=== PATIENT | female | born 1955 | race Caucasian/White ===

== ENCOUNTER 2018-08-06 17:24 | Emergency (ER) | payer OTHER ==
--- NOTE | 2018-08-06 17:39 | PDOC ---
Rapid Medical Evaluation Chief Complaint: Chest Pain Time Seen by Provider: 08/06/18 17:38 Medical Evaluation: 08/06/18 17:38 I have performed a brief in person evaluation of this patient. The patient's CC: CP HPI: Pt is a 62 YO female with CP x 1 day. No CV hx. PE: Skin: Clear Heart: RRR Lungs: Clear MS. moves all extremities without difficulty. Psch: appropriate affect CV protocol initiated. The patient will proceed to main ED for further evaluation. Discharge Disposition - Diagnosis Chest pain Qualifiers: Chest pain type: unspecified Qualified Code(s): R07.9 - Chest pain, unspecified - Referrals - Patient Instructions - Post Discharge Activity
[2018-08-06 17:41] VITALS: BP 157/87; PULSE 77; TEMP 98; BMI 32.4
--- NOTE | 2018-08-06 18:47 | PDOC ---
History of Present Illness - General Chief Complaint: Chest Pain Stated Complaint: CHEST PAIN Time Seen by Provider: 08/06/18 17:38 - History of Present Illness Initial Comments: The patient is a 62F w/ no reported PMH who presents for evaluation of 2d of intermittent substernal chest pain described as chest pressure that is b/l, worse in the morning, associated with residual chest wall soreness, and she is unsure if it is exacerbated/alleviated by anything that she can identify. She states she awoke yesterday morning suddenly bc of a mid-chest 'thump' that she felt. It subsequently resolved on her own, but for the remainder of the day she was experiencing chest wall soreness that is worse with movement and palpation. She reports feeling a similar sensation this morning which has since resolved, but also continues to feel the soreness. She has never had anything like this happen before. Of note, patient recently began taking care of her sibling who is s/p femur fx. Bc of this she has been sleeping less, doing more around the house, and reportedly taking less care of her self in general. Denies fevers/chills, REDD[place], vision changes, abdominal pain, N/V/C/D, or changes in sensation. Pt w/o PCP at this time 08/06/18 18:48 Past History - Past Medical History Allergies/Adverse Reactions: Allergies Allergy/AdvReac Type Severity Reaction Status Date / Time ascorbic acid Allergy Verified 08/06/18 19:12 cefazolin [From Ancef] Allergy Verified 08/06/18 19:11 shellfish derived Allergy Verified 08/06/18 19:11 [place] And Derivatives AdvReac Verified 08/06/18 19:12 Home Medications: Ambulatory Orders NK [No Known Home Medication] 08/06/18 COPD: No Diabetes: Yes (PRE - DIABETES) - Immunization History Immunization Up to Date: Yes - Suicide/Smoking/Psychosocial Hx Smoking History: Never smoked Hx Alcohol Use: No Drug/Substance Use Hx: No Review of Systems - Review of Systems Able to Perform ROS?: Yes Comments:: GENERAL/CONSTITUTIONAL: No fever or chills. No weakness HEAD, EYES, EARS, NOSE AND THROAT: No change in vision. No ear pain or discharge. No sore throat CARDIOVASCULAR: per HPI RESPIRATORY: Denies cough, hemoptysis GASTROINTESTINAL: No nausea, vomiting, diarrhea or constipation GENITOURINARY: No dysuria, frequency, or change in urination MUSCULOSKELETAL: +BLE chronic mild swelling w/o recent change SKIN: No rash NEUROLOGIC: No headache, vertigo, loss of consciousness, or change in strength/ sensation ENDOCRINE: No increased thirst. No abnormal weight change HEMATOLOGIC/LYMPHATIC: No anemia, easy bleeding, or history of blood clots ALLERGIC/IMMUNOLOGIC: No hives or skin allergy 08/06/18 18:41 Is the patient limited Lithuanian proficient: No *Physical Exam - Vital Signs Last Vital Signs Temp Pulse Resp BP Pulse Ox 98.0 F 77 17 157/87 99 08/06/18 17:38 08/06/18 17:38 08/06/18 17:38 08/06/18 17:38 08/06/18 17:38 - Physical Exam Comments: GENERAL: Awake, alert, and fully oriented, in no acute distress HEAD: No signs of trauma, normocephalic, atraumatic EYES: PERRLA, EOMI, sclera anicteric, conjunctiva clear ENT: Hearing grossly normal, nares patent, oropharynx clear without exudates.Moist mucosa LUNGS: No distress, speaks full sentences, clear to auscultation bilaterally HEART: Regular rate and rhythm, normal S1 and S2, no murmurs appreciated, peripheral pulses normal and equal bilaterally ABDOMEN: Soft, nontender, normoactive bowel sounds. No guarding, no rebound EXTREMITIES : Normal inspection, Normal range of motion, no edema. No clubbing or cyanosis NEUROLOGICAL: Cranial nerves II through XII grossly intact. Normal speech, no focal sensorimotor deficits SKIN: Warm, Dry, normal turgor, no rashes or lesions noted 08/06/18 18:41 Moderate Sedation - Procedure Monitoring Vital Signs: Procedure Monitoring Vital Signs Temperature 98.0 F 08/06/18 17:38 Pulse Rate 77 08/06/18 17:38 Respiratory Rate 17 08/06/18 17:38 Blood Pressure 157/87 08/06/18 17:38 O2 Sat by Pulse Oximetry (%) 99 08/06/18 17:38 ED Treatment Course - LABORATORY CBC & Chemistry Diagram: 08/06/18 18:50 08/06/18 18:50 Medical Decision Making - Medical Decision Making The pt is a 62F w/ no reported PMH who presents for evaluation for 2d of intermittent, non-exertional, substernal chest pain. Ddx: r/o ACS, r/o PNA, not likely GERD, r/o anemia ED Course CMP, CBC, cardiac profile, Cardiac profile ECG 08/06/18 18:50 No leukocytosis No anemia CXR dictation from Urgent Care w/o PNA ECG w/ sinus rhythm, mild RAD 08/06/18 19:22 Trop I neg x2 Plan for D/C w/ PCP and Cardiology f/u Discharge instructions and return precautions given Patient in agreement and verbalized understanding Dispo: home 08/06/18 23:02 *DC/Admit/Observation/Transfer Diagnosis at time of Disposition: Chest pain Qualifiers: Chest pain type: unspecified Qualified Code(s): R07.9 - Chest pain, unspecified - Discharge Dispostion Disposition: HOME Condition at time of disposition: Stable Decision to Admit order: No - Referrals Referrals: Edna Mora [Primary Care Provider] - Joey Garrido MD [Staff Physician] - - Patient Instructions Printed Discharge Instructions: DI for Chest Pain Additional Instructions: You were seen in the Emergency Department for evaluation of chest pain. You were provided a list of your results. You were not found to have evidence of a heart attack on your EKG or your labs. Review the handout provided at discharge. Follow up with the referral given to establish primary care. Return to the Emergency Department if you develop fevers, vision changes, trouble breathing, worsening/change/concerning chest pain, changes in sensation , nausea/vomiting, or new/concerning symptoms. - Post Discharge Activity Forms/Work/School Notes: Back to Work
[2018-08-06] MEDS ORDERED: ASPIRIN 81 MG CHEWABLE TABLETS PO ONE (19:04)
--- NOTE | 2018-08-06 19:06 | PDOC ---
Attending Attestation - HPI HPI: 08/06/18 19:17The patient is a 62 year old female with no significant PMH who presents to the emergency department with a 2 day history of substernal chest pain. The patient states that 3 days ago she had a thump in her chest which woke her up and has been experiencing residual chest pain since then. She describes the chest pain as a soreness in her chest and is unable to identify alleviating or exacerbating factors. Patient denies similar symptoms in the past. Patient was seen by urgent care earlier today. Patient had an EKG done there, which showed no significant abnormalities and had a chest XR, which showed no acute pulmonary disease, no pneumothorax, and showed a normal heart size. Patient was told to come to the ER for further evaluation. The patient denies shortness of breath, headache and dizziness. Denies fever, chills, nausea, vomit, diarrhea and constipation. Denies dysuria, frequency, urgency and hematuria. Allergies: NKA Past surgical history: None reported. Social history: No reported drug, alcohol, or cigarette use. PCP: Dr. Ruma Edmonds - Physicial Exam PE: 08/06/18 19:18 ADULT EXAM GENERAL: Awake, alert, and fully oriented, in no acute distress NECK: Normal ROM, supple, no lymphadenopathy, JVD, or masses LUNGS: Breath sounds equal, clear to auscultation bilaterally. No wheezes, and no crackles HEART: Regular rate and rhythm, normal S1 and S2, no murmurs, rubs or gallops ABDOMEN: Soft, nontender, normoactive bowel sounds. No guarding, no rebound. No masses EXTREMITIES: Normal range of motion, no edema. No clubbing or cyanosis. No cords, erythema, or tenderness NEUROLOGICAL: Cranial nerves II through XII grossly intact. Normal speech, normal gait SKIN: Warm, Dry, normal turgor, no rashes or lesions noted. <Emilia Ulloa - Last Filed: 08/06/18 19:17> - Resident Resident Name: Anil Turner - ED Attending Attestation I have performed the following: I have examined & evaluated the patient, The case was reviewed & discussed with the resident, I agree w/resident's findings & plan, Exceptions are as noted - Medical Decision Making 08/07/18 00:47 pt has no ischemia on her ekg both cardiac enzymes were negative d/c home w follow up with Dr Judy Edmonds imp atypical chest pain <Bebe Gunderson - Last Filed: 08/07/18 00:49>
[2018-08-06 19:10] LABS: BASO % 0.5 % (0-2.0); EOS % 0.5 % (0-4.5); HEMATOCRIT 39.5 % (32.4-45.2); HEMOGLOBIN 13.3 GM/dL (10.7-15.3); LYMPH % 24.1 % (8-40); MCH 28.3 pg (25.7-33.7); MCHC 33.6 g/dl (32.0-36.0); MEAN CELL VOLUME 84.2 fl (80-96); MEAN PLT VOLUME 8.2 fl (7.5-11.1); MONO % 8.1 % (3.8-10.2); NEUT % 66.8 % (42.8-82.8); PLATELET COUNT 202 K/MM3 (134-434); RBC 4.69 M/mm3 (3.60-5.2); RDW 14.8 % (11.6-15.6); WHITE BLOOD COUNT 7.1 K/mm3 (4.0-10.0)
[2018-08-06] MEDS ORDERED: ASPIRIN 81 MG CHEWABLE TABLETS ONE (19:14)
[2018-08-06 19:24] LABS: PROTHROMBIN TIME (PATIENT) 11.8 SEC (9.7-13.0)
[2018-08-06 20:02] LABS: BLOOD UREA NITROGEN 11 mg/dL (7-18); CREATININE 0.8 mg/dL (0.55-1.3); GLUCOSE,RANDOM 106 mg/dL (74-106); SODIUM 140 mmol/L (136-145)
[2018-08-06 20:03] LABS: ALBUMIN 4.1 g/dl (3.4-5.0); ALK PHOS 100 U/L (45-117); ANION GAP 9 MMOL/L (8-16); BILIRUBIN,TOTAL 0.3 mg/dL (0.2-1); CALCIUM 8.9 mg/dL (8.5-10.1); CHLORIDE 106 mmol/L (98-107); CO2 25 mmol/L (21-32); MAGNESIUM 2.1 mg/dL (1.8-2.4); POTASSIUM 3.9 mmol/L (3.5-5.1); SGOT/AST 12 U/L (15-37); SGPT/ALT 22 U/L (13-61); TOT PROT 7.2 g/dl (6.4-8.2)
--- NOTE | 2018-08-07 13:16 | EKG ---
Test Reason : Blood Pressure : / mmHG Vent. Rate : 075 BPM Atrial Rate : 075 BPM P-R Int : 148 ms QRS Dur : 104 ms QT Int : 396 ms P-R-T Axes : 058 -44 036 degrees QTc Int : 442 ms NORMAL SINUS RHYTHM LEFT AXIS DEVIATION ABNORMAL ECG NO PREVIOUS ECGS AVAILABLE Confirmed by COMFORT FRANCIS, PADMINI ([id number]) on 08/07/2018 1:15:58 PM Referred By: Confirmed By:PADMINI MOYER MD
== END 2018-08-06 23:00 | disposition home or self-care (01) ==
LOC: JER 17:24
DX: R07.9 Chest pain, unspecified (principal); R73.03 Prediabetes; Z91.013 Allergy to seafood; Z88.8 Allergy status to other drugs, medicaments and biological substances; Z91.02 Food additives allergy status
CPT/HCPCS: 36415; 80053; 82550; 83735; 84484; 85025; 85610; 93005; 93010; 99283-25

== ENCOUNTER 2021-08-01 10:33 | Inpatient (IN) | payer OTHER ==
[2021-08-01] MEDS ORDERED: morphine CARPU-JECT 4 MG/1 ML DISP.SYRIN IVPUSH ONE (11:21)
[2021-08-01] MEDS ORDERED: LACTATED RINGERS SOLUTION 1000 ML INFUS.BAG IV ONE ×3 (11:22→16:50)
[2021-08-01] MEDS ORDERED: ONDANSETRON 4 MG/2 ML VIAL IVPUSH ONE (11:22)
[2021-08-01] MEDS ORDERED: ONDANSETRON 4 MG/2 ML VIAL ONE (11:28)
[2021-08-01] MEDS ORDERED: morphine SULFATE 4 MG/ML VIAL ONE (11:28)
[2021-08-01 11:57] LABS: HEMATOCRIT 41.2 % (32.4-45.2); HEMOGLOBIN 13.2 GM/dL (10.7-15.3); MCH 26.7 pg (25.7-33.7); MEAN CELL VOLUME 83.5 fl (80-96); MEAN PLT VOLUME 8.5 fl (7.5-11.1); PLATELET COUNT 225 10^3/uL (134-434); RBC 4.93 M/mm3 (3.60-5.2); RDW 14.2 % (11.6-15.6); WHITE BLOOD COUNT 14.1 K/mm3 (4.0-10.0)
[2021-08-01 12:04] LABS: INR 1.11 (0.83-1.09); PROTHROMBIN TIME (PATIENT) 12.8 SEC (9.7-13.0)
[2021-08-01 12:25] LABS: CALCIUM 9.4 mg/dL (8.5-10.1)
[2021-08-01 12:26] LABS: ALBUMIN 4.2 g/dl (3.4-5.0)
[2021-08-01 12:29] LABS: CREATININE 1.1 mg/dL (0.55-1.3)
[2021-08-01 12:30] LABS: LACTIC ACID 2.2 mmol/L (0.4-2.0)
[2021-08-01 12:31] LABS: BILIRUBIN,TOTAL 0.5 mg/dL (0.2-1); TOT PROT 7.7 g/dl (6.4-8.2)
[2021-08-01 13:15] LABS: PLATELET ESTIMATE NORMAL
[2021-08-01 13:25] LABS: EPI CELLS >36 /uL (0-25.1); HYALINE CASTS 1 /uL (0-3.1); URINE APPEARANCE CLOUDY; URINE BACTERIA 1258 /uL (0-1359); URINE BILIRUBIN NEGATIVE (NEGATIVE); URINE COLOR YELLOW; URINE GLUCOSE (UA) NEGATIVE (NEGATIVE); URINE KETONE NEGATIVE (NEGATIVE); URINE LEUK ESTERASE 3+ (NEGATIVE); URINE NITRITE NEGATIVE (NEGATIVE); URINE PROTEIN NEGATIVE (NEGATIVE); URINE RBC 50 /uL (0-23.9); URINE UROBILINOGEN 0.2 mg/dL (0.2-1.0); URINE WBC 502 /uL (0-25.8)
[2021-08-01] MEDS ORDERED: KETOROLAC TROMETHAMINE 15 MG/ML VIAL IVPUSH ONE (16:50)
[2021-08-01] MEDS ORDERED: KETOROLAC TROMETHAMINE 15 MG/ML VIAL ONE (17:02)
[2021-08-01 17:31] LABS: LACTIC ACID 2.1 mmol/L (0.4-2.0)
[2021-08-01] MEDS ORDERED: SULFAMETHOXAZOLE/TRIMETHOPRIM 800MG/160MG D.S. TABLET PO ONE (18:29)
[2021-08-01] MEDS ORDERED: IMIPENEM/CILASTATIN SODIUM 500 MG in SODIUM CHLORIDE 100 ML IVPB ONE (18:42)
[2021-08-01] MEDS: SODIUM CHLORIDE 1,000 ML IV SCH (21:48)
[2021-08-01] MEDS: INSULIN SLIDING SCALE (NOVOLOG) 1 VIAL SQ SCH (22:00)
[2021-08-01] MEDS ORDERED: INSULIN SLIDING SCALE (NOVOLOG) 1 VIAL SQ SCH (22:00)
[2021-08-01] MEDS ORDERED: ACETAMINOPHEN 325 MG TABLET (FP) PO PRN (22:09)
[2021-08-01] MEDS ORDERED: TAMSULOSIN HCL 0.4 MG CAP ONE (22:31)
[2021-08-01] MEDS: TAMSULOSIN HCL 0.4 MG CAP PO SCH (22:56)
[2021-08-02 01:51] VITALS: BMI 32.3
[2021-08-02] MEDS ORDERED: IMIPENEM/CILASTATIN SODIUM 500 MG in SODIUM CHLORIDE 100 ML IVPB SCH (02:00)
[2021-08-02] MEDS: SODIUM CHLORIDE 1,000 ML IV SCH (03:51)
[2021-08-02] MEDS: IMIPENEM/CILASTATIN SODIUM 500 MG in SODIUM CHLORIDE 100 ML IVPB SCH ×4 (03:52→15:47)
[2021-08-02] MEDS: INSULIN SLIDING SCALE (NOVOLOG) 1 VIAL SQ SCH ×3 (06:04→16:40)
[2021-08-02] MEDS: TAMSULOSIN HCL 0.4 MG CAP PO SCH (08:57)
[2021-08-02 09:50] LABS: HEMATOCRIT 35.2 % (32.4-45.2); HEMOGLOBIN 11.8 GM/dL (10.7-15.3); MCH 27.9 pg (25.7-33.7); MCHC 33.6 g/dl (32.0-36.0); MEAN CELL VOLUME 82.9 fl (80-96); MEAN PLT VOLUME 8.5 fl (7.5-11.1); PLATELET COUNT 186 10^3/uL (134-434); RBC 4.25 M/mm3 (3.60-5.2); RDW 14.2 % (11.6-15.6); WHITE BLOOD COUNT 8.5 K/mm3 (4.0-10.0)
[2021-08-02 09:51] LABS: INR 1.16 (0.83-1.09); PROTHROMBIN TIME (PATIENT) 13.4 SEC (9.7-13.0)
[2021-08-02 09:54] LABS: ACTIVATED PTT 27.8 SECONDS (25.2-36.5)
[2021-08-02] MEDS ORDERED: ENOXAPARIN NA (PORCINE) 40 MG/0.4 ML DISP.SYRIN SQ SCH (10:00)
[2021-08-02 10:25] LABS: CALCIUM 8.9 mg/dL (8.5-10.1)
[2021-08-02 10:26] LABS: BLOOD UREA NITROGEN 18.9 mg/dL (7-18); MAGNESIUM 2.1 mg/dL (1.8-2.4)
[2021-08-02 10:29] LABS: PHOSPHOROUS 3.2 mg/dL (2.5-4.9)
[2021-08-02 10:30] LABS: BILIRUBIN,TOTAL 0.9 mg/dL (0.2-1); TOT PROT 6.2 g/dl (6.4-8.2)
[2021-08-02 10:32] LABS: ALBUMIN 3.2 g/dl (3.4-5.0)
[2021-08-02] MEDS ORDERED: CEPHALEXIN MONOHYDRATE 500 MG CAPSULE (UD) PO SCH (12:00)
[2021-08-02 14:56] VITALS: BP 129/71; PULSE 76; TEMP 98.4
== END 2021-08-02 16:00 | disposition home or self-care (01) | DRG 690 ==
LOC: JER 10:33 → JERBED 18:19 → J7W 08-02 00:32
PROVIDERS: ADMIT Internal Medicine
DX: N13.6 Pyonephrosis (principal); E87.2 Acidosis; I10 Essential (primary) hypertension; E11.9 Type 2 diabetes mellitus without complications; E78.5 Hyperlipidemia, unspecified; N39.0 Urinary tract infection, site not specified; E66.9 Obesity, unspecified; Z68.32 Body mass index [BMI] 32.0-32.9, adult; D72.829 Elevated white blood cell count, unspecified
CPT/HCPCS: 36415; 74176-TC; 80053; 81003; 82962; 83605; 83735; 84100; 85025; 85027; 85610; 85730; 86850; 86900; 86901; 87086; 93005; 93010; 99285-25; C9803; U0003; U0005